=== PATIENT | male | born 1955 | race American Indian/Alaskan Native ===

== ENCOUNTER 2018-10-23 10:33 | Day surgery (SDC) | payer OTHER ==
[~2018-10-23 10:33] MED LIST: NACL 0.9% 1000 ML 1,000 ML IV SCH
[2018-10-23] MEDS ORDERED: XYLOCAINE MPF 2% ONE (12:00)
[2018-10-23] MEDS ORDERED: D50W (25GM) Syringe IV ONE (13:00)
--- NOTE | 2018-10-23 13:50 | Anesthesia Consultation ---
Anesthesia Consult and Med Hx Date of service: 10/23/18 - Airway Anesthetic Teeth Evaluation: Poor ROM Head & Neck: Adequate Mental/Hyoid Distance: Adequate Mallampati Class: Class II Intubation Access Assessment: Probably Good - Pulmonary Exam CTA: Yes - Cardiac Exam Cardiac Exam: RRR - Pre-Operative Health Status ASA Pre-Surgery Classification: ASA3 Proposed Anesthetic Plan: MAC - Pulmonary Hx Respiratory Symptoms: No Hx Sleep Apnea: Yes (compliant with CPAP) - Cardiovascular System Hx Hypertension: Yes (took antihypertensives this morning) Hx Heart Attack/AMI: No Hx Percutaneous Transluminal Coronary Angioplasty (PTCA): No Hx Cardia Arrhythmia: No - Central Nervous System CVA: No - Endocrine Hx Renal Disease: No Hx Liver Disease: No Hx Insulin Dependent Diabetes: Yes (took oral hypoglycemics and insulin this morning. ) Hx Thyroid Disease: No - Other Systems Hx Obesity: Yes - Additional Comments Anesthesia Medical History Comments: Given D50 for symptomatic glucose of 70 in preop.
--- NOTE | 2018-10-23 13:50 | Anesthesia Day of Surgery ---
Anesthesia Day of Surgery - Day of Surgery Patient Examined: Yes Patient H&P Reviewed: Yes Patient is NPO: Yes
[2018-10-23] MEDS ORDERED: DIPRIVAN 10 MG/ML IV ONE ×2 (14:06)
--- NOTE | 2018-10-23 14:31 | Procedure Note ---
Date of procedure: 10/23/18 Pre-op diagnosis: Colon Polyp Screening/ F/H/O Cancer Post-op diagnosis: other (Solitary,Cecal Diverticulum/Few,Small Rectal Polyps (possibly Hyperplastic)/Minor,Internal Hemorrhoid) Procedure: Colonoscopy with Biopsy Anesthesia: MAC Surgeon: DIMPLE GAVIN Estimated blood loss: minimal Pathology: list Specimen disposition: to lab Condition: stable Disposition: same day (Encourage fiber intake,avoid aspirin and NSAID for 5 days. Resume home medication and follow up in 1 to 2 weeks ([phone]).)
--- NOTE | 2018-10-23 14:54 | Operative Report ---
PROCEDURE: Colonoscopy. INDICATIONS: The patient is a 63-year-old -Citizen Of [place] gentleman who had a colonoscopy done as part of colon polyp screening. He has a strong family history of cancer with several of his sisters having breast cancer. DESCRIPTION OF PROCEDURE: Procedure was done after getting informed consent with MAC anesthesia. Initial rectal exam was unremarkable. Instrument was passed through the rectum onto the cecum, which was identified with ileocecal valve and appendiceal orifice. Visualization was fair to good. There was a solitary cecal diverticula noted. The remaining part of the cecum, ascending colon and transverse colon, descending colon as well as a sigmoid showed normal mucosa. There were 2-3 small polyps noted in the rectum, which may have been hyperplastic and was removed by cold biopsy with minimal bleeding. The rectum showed some minor internal hemorrhoid on the retroverted view. ASSESSMENT: Colon polyp screening and rectal polyps, possibly hyperplastic solitary cecal diverticulum, minor internal hemorrhoid. Plan is to encourage the patient to take fiber supplements, avoid aspirin and aspirin-related products for the next few days and follow up in the office in 1-2 weeks' time. The patient will be asked as there were no complications with the procedure and minimal bleeding. Procedure was done in the presence and with the assistance of the GI lab team, which included MUKUL Burch and Rylee vazquez along with the assistance of anesthesia. JOB# [id number] LUCHO/RAZ
[2018-10-23 15:25] VITALS: BP 102/67
== END 2018-10-23 10:34 | disposition home or self-care (01) ==
LOC: GIO 10:33
DX: Z12.11 Encounter for screening for malignant neoplasm of colon (principal); K62.1 Rectal polyp; K64.8 Other hemorrhoids; K57.30 Diverticulosis of large intestine without perforation or abscess without bleeding; E11.9 Type 2 diabetes mellitus without complications; I10 Essential (primary) hypertension; G47.30 Sleep apnea, unspecified; E66.9 Obesity, unspecified; Z80.3 Family history of malignant neoplasm of breast; Z79.899 Other long term (current) drug therapy; Z80.8 Family history of malignant neoplasm of other organs or systems; Z79.84 Long term (current) use of oral hypoglycemic drugs; Z68.35 Body mass index [BMI] 35.0-35.9, adult; Z98.890 Other specified postprocedural states
CPT/HCPCS: 82962; 88305; J2704; J7030